=== PATIENT | female | born 1945 | race Caucasian/White ===

== ENCOUNTER 2017-05-04 03:35 | Inpatient (IN) | payer OTHER ==
[~2017-05-04] VITALS: Ht 154.9 cm; Wt 96.2 kg
[2017-05-04] MEDS ORDERED: SODIUM CHLORIDE 0.9% 1,000 ML IVB ONE (04:04)
[2017-05-04] MEDS ORDERED: ONDANSETRON HCL 4 MG/2 ML VIAL IV ONE (04:15)
[2017-05-04] MEDS ORDERED: HYDROmorphone HCL 2 MG/ML VL IV ONE ×2 (04:15→08:45)
[2017-05-04 04:36] LABS: Eosinophils # (auto) 0.1 uL; Lymphocytes # (auto) 1.1 uL; Lymphocytes % (auto) 6.7 % (10.0-50.0); Monocytes # (auto) 0.7 uL; Nucleated Red Blood Cells % 0.1 %
[2017-05-04 04:38] LABS: Basophils # (auto) 0.2 uL; Eosinophils % (auto) 0.5 % (0.0-7.0); Hematocrit 38.1 % (36.0-46.0); Hemoglobin 12.1 g/dL (12.2-16.2); Mean Corpuscular Hemoglobin 22.1 pg (28.0-32.0); Mean Corpuscular Hgb Conc. 31.7 g/dL (32.0-36.0); Mean Corpuscular Volume 69.5 fL (80.0-100.0); Monocytes % (auto) 4.1 % (0.0-12.0); Neutrophils # (auto) 14.3 uL; Neutrophils % (auto) 87.7 % (37.0-80.0); Platelet Count (auto) 246 10^3/uL (140-450); Red Blood Cells 5.49 10^6/uL (4.0-5.20); Red Cell Distribution Width 18.3 % (11.8-14.3); White Blood Cell 16.3 10^3/uL (4.4-10.8)
[2017-05-04 04:54] LABS: Albumin 3.7 g/dL (3.4-5.0); Calcium 9.4 mg/dL (8.5-10.1); Potassium 3.9 mmol/L (3.5-5.1)
[2017-05-04 05:01] LABS: Bilirubin, Total 0.2 mg/dL (0.2-1.0); Total Protein 7.8 g/dL (6.4-8.2)
[2017-05-04 06:25] LABS: Urine Bacteria MOD /hpf (None Seen); Urine Blood Negative /uL (Negative); Urine Hyaline Cast FEW /lpf (0 - 2); Urine Mucus MODERATE (None Seen); Urine Specific Gravity 1.028 (1.001-1.035); Urine WBC 74 /hpf (0 - 5)
[2017-05-04] MEDS ORDERED: IOHEXOL 300 MG/ML 100ML BOTTLE IJ ONE (07:31)
[2017-05-04] MEDS ORDERED: PROMETHAZINE HCL 25 MG/ML 1ML IV ONE (08:45)
[2017-05-04] MEDS ORDERED: cefTRIAXone 1GM/10ml IVPUSH 10 ML IV ONE (09:15)
[2017-05-04] MEDS ORDERED: DEXTROSE (50%) 50ML SYRG IV PRN (09:15)
[2017-05-04] MEDS ORDERED: MORPHINE SULFATE 4 MG/ML SYR/VIAL IV PRN ×2 (09:15)
[2017-05-04] MEDS ORDERED: LORazepam 2MG/ML-1ML VIAL IV PRN (09:15)
[2017-05-04] MEDS ORDERED: NITROGLYCERIN 0.4 MG SL TAB SL PRN (09:15)
[2017-05-04] MEDS: SODIUM CHLORIDE 0.9% 1,000 ML IV SCH ×3 (10:28→22:33)
[2017-05-04] MEDS: FAMOTIDINE (10MG/ML) 2ML VL IV SCH ×2 (10:29→22:17)
[2017-05-04] MEDS: InsuLIN REG 1unit/0.01ml Soln (100units/ml) SC SCH ×3 (12:00→23:49)
[2017-05-04] MEDS: ACCU-CHEK COMFORT CURVE STRIP VI SCH ×3 (12:17→23:48)
[2017-05-04] MEDS: metroNIDAZOLE 500MG/100ML 100 ML IV SCH ×2 (14:00→22:17)
[2017-05-04] MEDS: PROMETHAZINE HCL 25 MG/ML 1ML IV PRN (17:39)
[2017-05-04] MEDS: MORPHINE SULF INJ 2 MG/ML SYRINGE 1ML IV PRN (17:39)
[2017-05-04 20:47] VITALS: BP 157/70
[2017-05-04 23:38] VITALS: BP 157/70
[2017-05-05] MEDS: SODIUM CHLORIDE 0.9% 1,000 ML IV SCH ×4 (05:16→23:26)
[2017-05-05 05:26] VITALS: BP 133/71
[2017-05-05] MEDS: metroNIDAZOLE 500MG/100ML 100 ML IV SCH ×3 (05:41→23:08)
[2017-05-05] MEDS: InsuLIN REG 1unit/0.01ml Soln (100units/ml) SC SCH ×4 (05:41→23:23)
[2017-05-05] MEDS: ACCU-CHEK COMFORT CURVE STRIP VI SCH ×4 (05:41→23:26)
[2017-05-05 06:56] LABS: Basophils # (auto) 0 uL; Basophils % (auto) 0.2 % (0.0-2.0); Eosinophils # (auto) 0 uL; Eosinophils % (auto) 0.2 % (0.0-7.0); Hemoglobin 10.8 g/dL (12.2-16.2); Red Cell Distribution Width 18.2 % (11.8-14.3); White Blood Cell 15.4 10^3/uL (4.4-10.8)
[2017-05-05 06:58] LABS: Hematocrit 34.3 % (36.0-46.0); Lymphocytes # (auto) 0.5 uL; Lymphocytes % (auto) 3.4 % (10.0-50.0); Mean Corpuscular Hemoglobin 21.9 pg (28.0-32.0); Mean Corpuscular Hgb Conc. 31.4 g/dL (32.0-36.0); Mean Corpuscular Volume 69.8 fL (80.0-100.0); Monocytes # (auto) 0.8 uL; Monocytes % (auto) 5.1 % (0.0-12.0); Neutrophils % (auto) 91.1 % (37.0-80.0); Platelet Count (auto) 208 10^3/uL (140-450); Red Blood Cells 4.91 10^6/uL (4.0-5.20)
[2017-05-05 07:19] LABS: Cholesterol 129 mg/dL (< 200); HDL Cholesterol 62 mg/dL (40-59); LDL Cholesterol 63 mg/dL (< 100); Triglycerides 61 mg/dL (< 150)
[2017-05-05 07:22] LABS: BUN/Creatinine Ratio 24.6; Bilirubin, Total 0.5 mg/dL (0.2-1.0); Calcium 7.9 mg/dL (8.5-10.1); Potassium 3.7 mmol/L (3.5-5.1); Total Protein 6.5 g/dL (6.4-8.2)
[2017-05-05 09:00] VITALS: BP 133/79
[2017-05-05] MEDS: cefTRIAXone 1GM/10ml IVPUSH 10 ML IV SCH (11:52)
[2017-05-05] MEDS: FAMOTIDINE (10MG/ML) 2ML VL IV SCH ×2 (11:53→23:08)
[2017-05-05 13:00] VITALS: BP 135/61
[2017-05-05 16:41] VITALS: BP 137/78
[2017-05-05] MEDS: MORPHINE SULF INJ 2 MG/ML SYRINGE 1ML IV PRN (18:15)
[2017-05-05 22:04] VITALS: BP 112/59
[2017-05-06 05:09] VITALS: BP 102/63
[2017-05-06] MEDS: InsuLIN REG 1unit/0.01ml Soln (100units/ml) SC SCH ×3 (06:00→18:00)
[2017-05-06] MEDS: ACCU-CHEK COMFORT CURVE STRIP VI SCH ×3 (06:00→18:27)
[2017-05-06] MEDS: metroNIDAZOLE 500MG/100ML 100 ML IV SCH ×3 (06:31→21:26)
[2017-05-06] MEDS: SODIUM CHLORIDE 0.9% 1,000 ML IV SCH ×3 (07:01→21:41)
[2017-05-06] MEDS: MORPHINE SULF INJ 2 MG/ML SYRINGE 1ML IV PRN (08:05)
[2017-05-06 09:00] VITALS: BP 135/50
[2017-05-06] MEDS: cefTRIAXone 1GM/10ml IVPUSH 10 ML IV SCH (09:27)
[2017-05-06] MEDS: FAMOTIDINE (10MG/ML) 2ML VL IV SCH ×2 (09:27→21:27)
[2017-05-06] MEDS: HYDROmorphone HCL 2 MG/ML VL IV PRN ×2 (12:49→21:43)
[2017-05-06 13:00] VITALS: BP 127/56
[2017-05-06 16:54] VITALS: BP_SYST 112; BP_SYST 138; BP_DIAS 50; BP_DIAS 60
[2017-05-06 22:00] VITALS: BP 134/61
[2017-05-07] MEDS: ACCU-CHEK COMFORT CURVE STRIP VI SCH ×4 (00:19→18:33)
[2017-05-07] MEDS: SODIUM CHLORIDE 0.9% 1,000 ML IV SCH ×4 (03:53→23:53)
[2017-05-07 05:00] VITALS: BP 138/69
[2017-05-07] MEDS: metroNIDAZOLE 500MG/100ML 100 ML IV SCH ×3 (05:51→21:47)
[2017-05-07] MEDS: InsuLIN REG 1unit/0.01ml Soln (100units/ml) SC SCH ×4 (06:00→18:00)
[2017-05-07] MEDS: HYDROmorphone HCL 2 MG/ML VL IV PRN ×4 (07:40→22:25)
[2017-05-07 08:00] VITALS: BP 147/73
[2017-05-07 09:11] LABS: Hematocrit 34.5 % (36.0-46.0); Hemoglobin 10.5 g/dL (12.2-16.2); Lymphocytes % (auto) 3.9 % (10.0-50.0); Mean Corpuscular Hgb Conc. 30.5 g/dL (32.0-36.0); Neutrophils # (auto) 14.6 uL
[2017-05-07 09:13] LABS: Basophils # (auto) 0.1 uL; Basophils % (auto) 0.3 % (0.0-2.0); Eosinophils # (auto) 0.2 uL; Eosinophils % (auto) 0.9 % (0.0-7.0); Lymphocytes # (auto) 0.6 uL; Mean Corpuscular Hemoglobin 21.4 pg (28.0-32.0); Mean Corpuscular Volume 70.3 fL (80.0-100.0); Neutrophils % (auto) 88.9 % (37.0-80.0); Platelet Count (auto) 213 10^3/uL (140-450); Red Blood Cells 4.91 10^6/uL (4.0-5.20); Red Cell Distribution Width 18.2 % (11.8-14.3); White Blood Cell 16.4 10^3/uL (4.4-10.8)
[2017-05-07 09:31] LABS: BUN/Creatinine Ratio 33.3; Calcium 8.1 mg/dL (8.5-10.1); Potassium 3.8 mmol/L (3.5-5.1)
[2017-05-07] MEDS: FAMOTIDINE (10MG/ML) 2ML VL IV SCH ×2 (09:51→21:23)
[2017-05-07] MEDS: cefTRIAXone 1GM/10ml IVPUSH 10 ML IV SCH (09:52)
[2017-05-07] MEDS: ALBUTEROL SULF 2.5 MG/0.5ML(0.5%) NEB SOLN NEB SCH ×2 (12:00→18:00)
[2017-05-07 13:00] VITALS: BP 134/82
[2017-05-07 16:59] VITALS: BP 145/80
[2017-05-07 21:59] VITALS: BP 143/69
[2017-05-08 02:13] VITALS: BP 143/69
[2017-05-08] MEDS: ALBUTEROL SULF 2.5 MG/0.5ML(0.5%) NEB SOLN NEB SCH ×4 (06:00→18:37)
[2017-05-08] MEDS: InsuLIN REG 1unit/0.01ml Soln (100units/ml) SC SCH ×4 (06:00→18:00)
[2017-05-08] MEDS: ACCU-CHEK COMFORT CURVE STRIP VI SCH ×4 (06:00→19:25)
[2017-05-08 06:05] VITALS: BP 138/84
[2017-05-08] MEDS: SODIUM CHLORIDE 0.9% 1,000 ML IV SCH ×3 (06:33→19:53)
[2017-05-08] MEDS: metroNIDAZOLE 500MG/100ML 100 ML IV SCH ×3 (06:48→22:13)
[2017-05-08 07:17] LABS: Eosinophils # (auto) 0.2 uL; Hemoglobin 10.2 g/dL (12.2-16.2); Lymphocytes # (auto) 0.5 uL
[2017-05-08 07:21] LABS: Basophils # (auto) 0 uL; Basophils % (auto) 0.2 % (0.0-2.0); Eosinophils % (auto) 1.7 % (0.0-7.0); Hematocrit 32.6 % (36.0-46.0); Lymphocytes % (auto) 3.6 % (10.0-50.0); Mean Corpuscular Hemoglobin 21.8 pg (28.0-32.0); Mean Corpuscular Hgb Conc. 31.2 g/dL (32.0-36.0); Mean Corpuscular Volume 69.9 fL (80.0-100.0); Monocytes # (auto) 1.1 uL; Monocytes % (auto) 7.9 % (0.0-12.0); Neutrophils # (auto) 11.9 uL; Neutrophils % (auto) 86.6 % (37.0-80.0); Platelet Count (auto) 221 10^3/uL (140-450); Red Blood Cells 4.67 10^6/uL (4.0-5.20); Red Cell Distribution Width 18.1 % (11.8-14.3); White Blood Cell 13.8 10^3/uL (4.4-10.8)
[2017-05-08 07:34] LABS: BUN/Creatinine Ratio 31.7; Calcium 7.8 mg/dL (8.5-10.1); Potassium 3.3 mmol/L (3.5-5.1)
[2017-05-08] MEDS: cefTRIAXone 1GM/10ml IVPUSH 10 ML IV SCH (08:15)
[2017-05-08] MEDS: HYDROmorphone HCL 2 MG/ML VL IV PRN ×3 (08:15→22:20)
[2017-05-08] MEDS: FAMOTIDINE (10MG/ML) 2ML VL IV SCH ×2 (08:15→22:13)
[2017-05-08 09:00] VITALS: BP 151/79
[2017-05-08 13:00] VITALS: BP 129/59
[2017-05-08] MEDS ORDERED: POTASSIUM CHL 10% (20 MEQ/15ML) 15ml ORAL SOLN PO ONE (14:45)
[2017-05-08] MEDS ORDERED: MORPHINE SULFATE 10 MG/ML INJ 1ML SDV IV PRN (15:15)
[2017-05-08] MEDS ORDERED: MORPHINE SULF INJ 2 MG/ML SYRINGE 1ML IV PRN (15:15)
[2017-05-08 18:02] VITALS: BP 152/97
[2017-05-08 22:20] VITALS: BP 137/74
[2017-05-08] MEDS: PROMETHAZINE HCL 25 MG/ML 1ML IV PRN (22:20)
[2017-05-09 05:34] VITALS: BP 134/81
[2017-05-09] MEDS: ACCU-CHEK COMFORT CURVE STRIP VI SCH ×4 (06:00→18:46)
[2017-05-09] MEDS: InsuLIN REG 1unit/0.01ml Soln (100units/ml) SC SCH ×4 (06:00→18:00)
[2017-05-09] MEDS: metroNIDAZOLE 500MG/100ML 100 ML IV SCH ×3 (06:33→21:41)
[2017-05-09] MEDS: ALBUTEROL SULF 2.5 MG/0.5ML(0.5%) NEB SOLN NEB SCH ×3 (07:50→20:06)
[2017-05-09 09:00] VITALS: BP 152/92
[2017-05-09] MEDS: cefTRIAXone 1GM/10ml IVPUSH 10 ML IV SCH (10:54)
[2017-05-09] MEDS: FAMOTIDINE (10MG/ML) 2ML VL IV SCH ×2 (10:54→22:03)
[2017-05-09 13:00] VITALS: BP 138/80
[2017-05-09 17:00] VITALS: BP 137/77
[2017-05-09] MEDS: HYDROmorphone HCL 2 MG/ML VL IV PRN ×2 (18:00→22:04)
[2017-05-09 22:00] VITALS: BP 133/77
[2017-05-09] MEDS: SODIUM CHLORIDE 0.9% 1,000 ML IV SCH (23:09)
[2017-05-10 05:00] VITALS: BP 151/88
[2017-05-10] MEDS: InsuLIN REG 1unit/0.01ml Soln (100units/ml) SC SCH ×5 (06:00→23:39)
[2017-05-10] MEDS: ACCU-CHEK COMFORT CURVE STRIP VI SCH ×5 (06:03→23:38)
[2017-05-10] MEDS: metroNIDAZOLE 500MG/100ML 100 ML IV SCH (06:03)
[2017-05-10] MEDS: ALBUTEROL SULF 2.5 MG/0.5ML(0.5%) NEB SOLN NEB SCH ×4 (07:30→19:26)
[2017-05-10 09:35] VITALS: BP 131/65
[2017-05-10] MEDS: cefTRIAXone 1GM/10ml IVPUSH 10 ML IV SCH (10:22)
[2017-05-10] MEDS: FAMOTIDINE (10MG/ML) 2ML VL IV SCH ×2 (10:22→22:14)
[2017-05-10 13:00] VITALS: BP 128/63
[2017-05-10] MEDS: SODIUM CHLORIDE 0.9% 1,000 ML IV SCH (13:53)
[2017-05-10 16:49] VITALS: BP 139/83
[2017-05-10 21:49] VITALS: BP 144/85
[2017-05-10] MEDS: HYDROmorphone HCL 2 MG/ML VL IV PRN (23:39)
[2017-05-11 05:00] VITALS: BP 170/77
[2017-05-11] MEDS: InsuLIN REG 1unit/0.01ml Soln (100units/ml) SC SCH (05:31)
[2017-05-11] MEDS: ACCU-CHEK COMFORT CURVE STRIP VI SCH (05:31)
[2017-05-11 06:33] LABS: Basophils # (auto) 0 uL; Eosinophils # (auto) 0.3 uL; Hemoglobin 9.8 g/dL (12.2-16.2); Lymphocytes # (auto) 1.1 uL; Mean Corpuscular Hemoglobin 21.7 pg (28.0-32.0); Mean Corpuscular Hgb Conc. 31.2 g/dL (32.0-36.0); Red Cell Distribution Width 17.9 % (11.8-14.3); White Blood Cell 9.4 10^3/uL (4.4-10.8)
[2017-05-11 06:37] LABS: Basophils % (auto) 0.3 % (0.0-2.0); Eosinophils % (auto) 2.8 % (0.0-7.0); Hematocrit 31.6 % (36.0-46.0); Lymphocytes % (auto) 11.4 % (10.0-50.0); Mean Corpuscular Volume 69.6 fL (80.0-100.0); Monocytes % (auto) 10.8 % (0.0-12.0); Neutrophils % (auto) 74.7 % (37.0-80.0); Platelet Count (auto) 256 10^3/uL (140-450); Red Blood Cells 4.54 10^6/uL (4.0-5.20)
[2017-05-11] MEDS: ALBUTEROL SULF 2.5 MG/0.5ML(0.5%) NEB SOLN NEB SCH ×3 (06:39→11:51)
[2017-05-11 08:00] VITALS: BP 132/64
[2017-05-11 09:00] VITALS: BP 132/64
[2017-05-11 09:01] VITALS: BP 132/64
[2017-05-11] MEDS: FAMOTIDINE (10MG/ML) 2ML VL IV SCH (10:00)
[2017-05-11] MEDS ORDERED: HYDR-4683 PO (10:00)
== END 2017-05-11 10:40 | disposition short-term general hospital (02) | DRG 871 ==
LOC: EDBD 03:35 → ER 03:41 → OVERFLOW 03:42 → TELE-WESTW 20:05 → WEST WING 05-10 19:17
PROVIDERS: ADMIT Internal Medicine; ATTEND Internal Medicine
DX: A41.9 Sepsis, unspecified organism (principal); K85.90 Acute pancreatitis without necrosis or infection, unspecified; E11.9 Type 2 diabetes mellitus without complications; N39.0 Urinary tract infection, site not specified; Z68.41 Body mass index [BMI] 40.0-44.9, adult; R91.8 Other nonspecific abnormal finding of lung field; E66.01 Morbid (severe) obesity due to excess calories; K57.30 Diverticulosis of large intestine without perforation or abscess without bleeding; D25.9 Leiomyoma of uterus, unspecified; M19.90 Unspecified osteoarthritis, unspecified site; Z80.0 Family history of malignant neoplasm of digestive organs; Z83.3 Family history of diabetes mellitus; Z90.49 Acquired absence of other specified parts of digestive tract
CPT/HCPCS: 36415; 71260; 74176; 76856; 80048; 80053; 80061; 81001; 82150; 82962; 83036; 83690; 83880; 85025; 87086; 93005; 94640; 96361; 96374; 96375; 96376; J1815; J2405; J3490